=== PATIENT | male | born 1980 | race Caucasian/White ===

== ENCOUNTER → 2018-07-10 | Outpatient (CLI) | payer OTHER ==
--- NOTE | 2018-07-12 22:24 | MR ---
EXAMINATION TYPE: MR knee LT wo con DATE OF EXAM: 07/10/2018 COMPARISON: None HISTORY: Left Knee pain with Locking and Swelling x 3 years TECHNIQUE: Multiplanar, multisequence imaging of the left knee is performed without IV contrast. FINDINGS: MEDIAL MENISCUS: Anterior and posterior horns are intact without tear. LATERAL MENISCUS: Anterior and posterior horns are intact without tear. CRUCIATE LIGAMENTS: The anterior and posterior cruciate ligaments are intact and unremarkable. COLLATERAL LIGAMENTS: The medial collateral ligament and lateral collateral ligament complex are inta ct and unremarkable. EXTENSOR MECHANISM: Visualized distal quadriceps tendon appears normal. At the insertion of the aj lar tendon on the tibia there is some thickening posterior. Correlate for injury. Partial avulsion co uld be considered. Small amount of fluid surrounds the patellar tendon at this location. Series 301 i mage 15 EFFUSION: Mild joint effusion is present diffusely through Hoffa's fat pad in the suprapatellar spac e and through the joint space. POPLITEAL CYST: Popliteal cyst is present posterior to the femur. This measures approximately 2.1 x 2.3 cm. TRICOMPARTMENT SPACES: There is narrowing of the medial lateral compartment joint spaces compatible s ome osteoarthritic degenerative change. CARTILAGE: There is loss of the distal femoral cartilage within the lateral compartment lateral aspec t of the distal femoral condyle. Some thinning of the medial distal femoral condyle cartilage is pres ent. BONE MARROW SIGNAL: No focal abnormal marrow signal is appreciated. OTHER: No additional significant abnormality is appreciated. No suspicious changes for menisci to graham ggest this is an etiology for patient's symptoms of locking. IMPRESSION: 1. Correlate for distal patellar tendon injury with partial avulsion from the tibial insertion. 2. Small diffuse effusion throughout the joint space. 3. Osteoarthritic degenerative change appears greatest with loss of anterior lateral femoral condylar articular cartilage laterally.
== END | disposition home or self-care (01) ==
LOC: RADMRIMAIN 21:06
PROVIDERS: ATTEND Internal Medicine
DX: M17.12 Unilateral primary osteoarthritis, left knee (principal)

== ENCOUNTER → 2018-07-22 | Outpatient (CLI) | payer OTHER ==
--- NOTE | 2018-07-22 10:11 | US ---
EXAMINATION TYPE: US abdomen limited DATE OF EXAM: 07/22/2018 COMPARISON: NONE CLINICAL HISTORY: R94.5 abnormal liver function test. no symptoms EXAM MEASUREMENTS: Liver Length: 18.0 cm Gallbladder Wall: 0.2 cm CBD: 0.5 cm Right Kidney: 10.4 x 5.0 x 4.9 cm Pancreas: bowel gas limits imaging of tail Liver: wnl Gallbladder: wnl Evidence for sonographic Alvarenga's sign: no CBD: wnl Right Kidney: wnl IMPRESSION: 1. Mild hepatomegaly.
--- NOTE | 2018-07-22 11:45 | CT ---
EXAMINATION TYPE: CT soft tissue neck w con DATE OF EXAM: 07/22/2018 COMPARISON: None HISTORY: Neck mass, swelling and abn liver function CT DLP: 665 mGycm CONTRAST: Patient injected with 100 ml mL of Isovue 300. TECHNIQUE: Axial images at 3 mm thick sections. Reconstructed images in the coronal plane and sagitt al plane are reviewed. FINDINGS: Limited CT sections are obtained the lung apices. The lung apices appear clear. CT neck: The torus tubarius and fossa of Rosenmuller are normal. Customer Service Driver spaces are normal. Para nasal sinuses and mastoid air cells are clear. Dental amalgam scatter artifact is present at the level of the mandible. Parotid glands appear normal and symmetrical. Submandibular glands, are normal. Parapharyngeal spac es are normal. No suspicious adenopathy is evident. Couple of tiny lymph nodes may be present adjace nt to the sternocleidomastoid muscle at the level of the palpable abnormality marked by the BB. These are not enlarged by CT criteria. No suspicious underlying mass is evident. The hypopharynx appears within normal limits. Vocal cord level appear symmetrical. Thyroid as visualized is normal. Incidental note is made of some mild narrowing of less than 50% wit hin the proximal right internal carotid artery. Osseous structures are normal. IMPRESSIONS: 1. Normal soft tissue neck. 2. Couple of small lymph nodes at the level of the palpable abnormality. No enlarged suspicious bri s or adenopathy is evident.
== END ==
LOC: RADCTMAIN 08:40
PROVIDERS: ATTEND Internal Medicine
DX: R16.0 Hepatomegaly, not elsewhere classified (principal); R22.1 Localized swelling, mass and lump, neck
CPT/HCPCS: 76705; 70491; Q9967

== ENCOUNTER 2019-02-01 17:23 | Emergency (ER) | payer OTHER ==
[2019-02-01 17:36] VITALS: BP 121/77; PULSE 61; RESP 18; TEMP 97.2
[2019-02-01] MEDS ORDERED: LIDOCAINE 1% INJ 10MG/ML (20 ML MDV) SQ ONE (18:34)
--- NOTE | 2019-02-01 19:04 | ED ---
Skin/Abscess/FB HPI - General Chief complaint: Skin/Abscess/Foreign Body Stated complaint: FB IN RT HAND Time Seen by Provider: 02/01/19 17:48 Source: patient Mode of arrival: ambulatory Limitations: no limitations - History of Present Illness Initial comments: Patient is a 38-year-old male presenting to the emergency department with the complaints of a piece of wood stuck in his right hand that happened prior to arrival today. Patient states he was working on a wood saw when a piece flew into the webbing space between his right fourth and fifth digit. Bleeding is minimal at this time. Patient states his tetanus vaccine is up-to-date. Patient denies fever, chills, numbness, tingling. Patient has no other complaints at this time. Upon arrival to ER, vital signs are stable. - Related Data Home Medications Medication Instructions Recorded Confirmed No Known Home Medications 02/01/19 02/01/19 Allergies Allergy/AdvReac Type Severity Reaction Status Date / Time No Known Allergies Allergy Verified 02/01/19 17:36 Review of Systems ROS Statement: Those systems with pertinent positive or pertinent negative responses have been documented in the HPI. ROS Other: All systems not noted in ROS Statement are negative. Past Medical History Past Medical History: No Reported History History of Any Multi-Drug Resistant Organisms: None Reported Past Surgical History: Orthopedic Surgery Past Psychological History: No Psychological Hx Reported Smoking Status: Former smoker Past Alcohol Use History: None Reported Past Drug Use History: None Reported General Exam - General Exam Comments Initial Comments: GENERAL: Well-appearing, well-nourished and in no acute distress. HEAD: Atraumatic, normocephalic. EYES: Pupils equal round and reactive to light, extraocular movements intact, sclera anicteric, conjunctiva are normal. ENT: TMs normal, nares patent, oropharynx clear without exudates. Moist mucous membranes. NECK: Normal range of motion, supple without lymphadenopathy or JVD. LUNGS: Breath sounds clear to auscultation bilaterally and equal. No wheezes rales or rhonchi. HEART: Regular rate and rhythm without murmurs, rubs or gallops. ABDOMEN: Soft, nontender, normoactive bowel sounds. No guarding, no rebound. No masses appreciated. : Deferred EXTREMITIES: Normal range of motion, no pitting or edema. No clubbing or cyanosis. NEUROLOGICAL: Cranial nerves II through XII grossly intact. Normal speech, normal gait. PSYCH: Normal mood, normal affect. SKIN: Warm, Dry, normal turgor, no rashes. Patient has a small entrance wound in the webbing space between the right fourth and fifth digit. There is a foreign object felt underneath the skin, palmar aspect that feels about 1.5 cm in length consistent with a piece of wood. Limitations: no limitations Course Vital Signs 02/01/19 17:33 Temperature 97.2 F L Pulse Rate 61 Respiratory 18 Rate Blood Pressure 121/77 O2 Sat by Pulse 98 Oximetry Procedures - Procedures Initial comment: Patient has a foreign object embedded in the webbing space in between the right fourth and fifth digits. Area was soaked in Betadine and water. Patient was injected with 2 mL of lidocaine. Entrance area was made larger with #11 blade. Foreign object was removed with alligator forceps and hemostats. Foreign object was a 1.5 cm piece of wood. No other foreign object was felt underneath the skin. Patient tolerated procedure well. Bleeding was minimal. Wound was then soaked again in Betadine and water solution. Topical antibiotic was applied as well as bandage. Medical Decision Making - Medical Decision Making Patient is a 38-year-old male presenting with a 1.5 cm piece of wood embedded in the webbing space in between his right fourth and fifth digit. The piece of wood is felt underneath the skin on the palmar aspect of the right hand. Patient was injected with lidocaine and using alligator forceps and hemostat, piece of wood was removed. Patient tolerated procedure well. Patient's wound was cleaned before and after the procedure. Topical antibiotic and bandage was applied postprocedure. Patient tolerated procedure well. Patient will continue to apply topical antibiotic twice a day for 5 days. Patient is stable for discharge at this time. Return parameters were discussed with the patient he verbalizes understanding. Case discussed with Dr. Henderson. Disposition Clinical Impression: Other foreign body or object entering through skin, initial encounter Disposition: HOME SELF-CARE Condition: Stable Instructions (If sedation given, give patient instructions): Laceration (ED) Additional Instructions: Please return to the Emergency Department if symptoms worsen or any other concerns. Keep area covered and apply topical antibiotic twice a day. Watch for signs of infection such as increase in pain, redness, yellow drainage. Do not soak hand in pools or lakes. Showers and washing hands as normal is fine. Is patient prescribed a controlled substance at d/c from ED?: No Referrals: Jovan Burleson MD [Primary Care Provider] - 1-2 days
== END 2019-02-01 19:15 | disposition home or self-care (01) ==
LOC: EC 17:23
DX: S60.551A Superficial foreign body of right hand, initial encounter (principal); Z87.891 Personal history of nicotine dependence; W45.8XXA Other foreign body or object entering through skin, initial encounter
CPT/HCPCS: 99283; 10120; J2001

== ENCOUNTER 2019-02-12 08:42 | Emergency (ER) | payer OTHER ==
[2019-02-12] MEDS ORDERED: LIDOCAINE 1%-EPI 1:100,000 20 ML VIAL SQ STA ×2 (08:56→09:10)
[2019-02-12 09:03] VITALS: PULSE 80; TEMP 97.3
--- NOTE | 2019-02-12 09:20 | ED ---
Extremity Problem HPI - General Chief complaint: Extremity Problem,Nontraumatic Stated complaint: POSS FB IN RT HAND Time Seen by Provider: 02/12/19 08:49 Source: patient Mode of arrival: ambulatory Limitations: no limitations - History of Present Illness Initial comments: This 38-year-old white male presents with a complaint of some swelling between the fourth and fifth digits of his right hand. He states that he obtained a splinter to this area approximately 11 days ago and was seen in ER at that time. They removed a large splinter from his hand. He states that he has progressively developed some swelling, erythema, and fluctuance to the affected area. He is wondering if there is still additional splinter left in the wound. He complains of some mild pain. He denies any paresthesias or problems with movement of his fingers. No fevers or chills. His tetanus is up-to-date. No other complaints or modifying factors. - Related Data Previous Rx's Medication Instructions Recorded Sulfamethox-Tmp 800-160Mg [Bactrim 1 tab PO Q12HR #20 tab 02/12/19 DS 800-160 mg] Allergies Allergy/AdvReac Type Severity Reaction Status Date / Time No Known Allergies Allergy Verified 02/12/19 08:47 Review of Systems ROS Statement: Those systems with pertinent positive or pertinent negative responses have been documented in the HPI. ROS Other: All systems not noted in ROS Statement are negative. Past Medical History Past Medical History: No Reported History History of Any Multi-Drug Resistant Organisms: None Reported Past Surgical History: Orthopedic Surgery Past Psychological History: No Psychological Hx Reported Smoking Status: Former smoker Past Alcohol Use History: None Reported Past Drug Use History: None Reported General Exam Limitations: no limitations Extremities exam: Present: tenderness (There is mild tenderness, erythema, and slight fluctuance noted to the area between the right pinky and ring fingers. No drainage noted. Excellent range of motion all digits, strength is intact.) Psychiatric exam: Present: normal affect, normal mood Skin exam: Present: intact Course Vital Signs 02/12/19 08:45 Temperature 97.3 F L Pulse Rate 80 Respiratory 20 Rate Blood Pressure 137/80 O2 Sat by Pulse 99 Oximetry Medical Decision Making - Medical Decision Making The patient was seen and examined. An x-ray was done to determine if there is any additional foreign bodies present in the wound. No foreign bodies were identified on the x-ray. It is felt as though he likely had some wood in the wound and therefore he is prepped and draped in usual sterile fashion. He was anesthetized with approximately 4 mL of lidocaine. Excellent anesthesia is obtained. Utilizing 11 blade scalpel was superficial incision was made between the fourth and fifth digits, approximately 0.5 cm. A wood splinter was then removed measuring approximately 1.5 cm. 2 small fragments of wood splinters were also removed. The patient tolerated this well. There is no complications. Antibiotic ointment and dressing are applied. It is felt as though he stable for discharge. No purulence was expressed from the wound but he'll be placed on antibiotics nevertheless. He understands and agrees with the following disposition and leaves in no distress. Disposition Clinical Impression: Foreign body (FB) in soft tissue Disposition: HOME SELF-CARE Condition: Good Additional Instructions: Please use Tylenol and/or Motrin if needed for pain. Prescriptions: Sulfamethox-Tmp 800-160Mg [Bactrim DS 800-160 mg] 1 tab PO Q12HR #20 tab Is patient prescribed a controlled substance at d/c from ED?: No Referrals: Jovan Burleson MD [Primary Care Provider] - 1-2 days Time of Disposition: 09:48
[2019-02-12] MEDS ORDERED: LIDOCAINE 1% INJ 10MG/ML (20 ML MDV) SQ ONE (09:25)
--- NOTE | 2019-02-12 09:55 | XR ---
EXAMINATION TYPE: XR hand limited RT DATE OF EXAM: 02/12/2019 COMPARISON: NONE HISTORY: Possible foreign body TECHNIQUE: Three views are submitted. FINDINGS: The osseous structures are intact. The joint spaces are preserved and there is no acute fracture or dislocation. No radiopaque foreign body. IMPRESSION: 1. No radiopaque foreign body.
[2019-02-12 10:11] VITALS: BP 130/76; RESP 17
== END 2019-02-12 09:54 | disposition home or self-care (01) ==
LOC: EC 08:42
DX: M79.5 Residual foreign body in soft tissue (principal); Z87.891 Personal history of nicotine dependence
CPT/HCPCS: 73120; 99283; 10120; J2001

== ENCOUNTER → 2019-03-29 | Outpatient (CLI) | payer OTHER ==
--- NOTE | 2019-03-29 09:11 | MM ---
Reason for exam: clinical finding. Baseline mammogram. Physical Findings: Nurse Summary: 0.5cm nodule in the right breast at the retroareolar (nurse kp). [facility] Diagnostic Mammo w CAD [facility]NOR Bilateral CC and MLO view(s) were taken. Greater in the right breast flammed shaped gynecomastia (mild). These results were verbally communicated with the patient and result sheet given to the patient on 03/29/19. ASSESSMENT: Benign, BI-RAD 2 RECOMMENDATION: Clinical management of both breasts. Manage patient on a clinical basis.
== END | disposition home or self-care (01) ==
LOC: RADMAMWWP 07:47
PROVIDERS: ATTEND Internal Medicine
DX: N63.10 Unspecified lump in the right breast, unspecified quadrant (principal); N63.20 Unspecified lump in the left breast, unspecified quadrant
CPT/HCPCS: 77066